=== PATIENT | male | born 1985 | race Two or more races ===

== ENCOUNTER 2025-06-15 15:10 | Emergency (ER) | payer OTHER ==
[~2025-06-15] VITALS: Ht 172.7 cm; Wt 77.1 kg
[2025-06-15] MEDS ORDERED: MONTELUKAST SOD10 MG (16:20)
[2025-06-15] MEDS ORDERED: VENTOLIN HFA18 GM (16:20)
[2025-06-15] MEDS ORDERED: SYMBICORT 16010.2 GM (16:20)
[2025-06-15] MEDS ORDERED: KETOROLAC TROMETHAMINE 60 MG VIAL IM ONE (17:15)
[2025-06-15] MEDS ORDERED: DEXAMETHASONE SODIUM PHOSPHATE 4 MG/ML VIAL IM ONE (17:15)
[2025-06-15] MEDS ORDERED: CEFTRIAXONE SODIUM 1,000 MG VIAL IM ONE (17:30)
[2025-06-15 18:25] LABS: BASO % 0.2 % (0.1-1.2); EOS # 0.00 (0.04-0.54); EOS % 0.0 % (0.7-7.0); LYMPH # 0.97 (1.18-3.74); LYMPH % 22.7 % (19.3-53.1); MEAN PLATELET VOLUME 10.20 fl (9.4-12.4); MONO # 0.60 (0.24-0.82); NEUT # 2.68 (1.56-6.13); NEUT % 62.8 % (34.0-71.1); RED CELL DISTRIBUTION WIDTH 13.2 % (11.6-14.4)
[2025-06-15 18:26] LABS: MONO % 14.1 % (4.7-12.5)
[2025-06-15 19:51] LABS: COVID-19 AG NEGATIVE (NEGATIVE)
[2025-06-15] MEDS ORDERED: GILTUSS HONEY118 ML PO (20:03)
[2025-06-15] MEDS ORDERED: ACETAMINOPHEN500 M1 PO (20:08)
[2025-06-15] MEDS ORDERED: CIPROFLOX-DEXA7.5 ML OT (20:08)
== END 2025-06-15 21:28 | disposition home or self-care (01) ==
LOC: ER 15:10
PROVIDERS: Preventive Medicine Public Health & General Preventive Medicine
DX: B34.9 Viral infection, unspecified (principal); J45.909 Unspecified asthma, uncomplicated; Z20.822 Contact with and (suspected) exposure to COVID-19